=== PATIENT | male | born 1995 | race Caucasian/White ===

== ENCOUNTER 2020-11-30 08:32 | Emergency (ER) | payer BC, OTHER ==
[~2020-11-30] VITALS: Ht 175.3 cm; Wt 82.0 kg
[2020-11-30 08:40] VITALS: BP 113/71
[2020-11-30] MEDS ORDERED: ONDANSETRON 4MG ODT PO ONE (09:00)
[2020-11-30] MEDS ORDERED: HYDROCODONE/ACETAMINOPHEN 5/325MG TABLET PO ONE (09:00)
[2020-11-30] MEDS ORDERED: IBUP-2030 MT (09:19)
[2020-11-30] MEDS ORDERED: TRAM50TA3 MT (09:19)
== END 2020-11-30 10:35 | disposition home or self-care (01) ==
LOC: ER 08:32
DX: M25.511 Pain in right shoulder (principal); V43.52XA Car driver injured in collision with other type car in traffic accident, initial encounter; Y93.89 Activity, other specified; Y92.488 Other paved roadways as the place of occurrence of the external cause
CPT/HCPCS: 73030; 99283; Q0162